=== PATIENT | female | born 1960 | race Caucasian/White ===

== ENCOUNTER 2022-03-27 14:50 | Outpatient (CLI) | payer OTHER, SELFPAY ==
--- NOTE | ~2022-03-27 | DEXA_ITS ---
Bone Density Report Name: KARL CENTENO Age: 61 Sex: Female Ethnicity: White Date of : 1960 Indication: postmenopausal; screening for osteoporosis; height loss; hysterectomy; Referring Provider: CECI BRUMFIELD Study: Bone densitometry was performed. Exam Date: March 27, 2022 Accession number: [id number] Bone Density: Region BMD T-score Z-score Classification AP Spine(L1-L4) 0.740 -2.8 -1.2 Osteoporosis Femoral Neck (Left) 0.588 -2.4 -1.0 Osteopenia Total Hip (Left) 0.789 -1.3 -0.2 Osteopenia Femoral Neck (Right) 0.605 -2.2 -0.8 Osteopenia Total Hip (Right) 0.796 -1.2 -0.1 Osteopenia Total Hip Mean 0.793 -1.3 -0.2 Osteopenia World Health Organization criteria for BMD impression classify patients as: Normal (T-score at or above -1.0), Osteopenia (T-score between -1.0 and -2.5), or Osteoporosis (T-score at or below -2.5). 10-year Fracture Risk: FRAX not reported because: Some T-score for Spine Total or Hip Total or Femoral Neck at or below -2.5 Clinical Information Provided by Patient: Has used the following medications: Vitamin D Has the following medical conditions: Hysterectomy Patient maximum height was 63.5 Menopause Age: 44 Drinks caffeinated beverages Onset of menses at age 17 Number of children 2 Impression: The patient has osteoporosis, based on the Total Spine T-score. Discussion: INCREASED RISK OF FRACTURE. BONE DENSITY IS UNDESIRABLY LOW AT ONE OR MORE SKELETAL SITES, CONSISTENT WITH POSTMENOPAUSAL OSTEOPOROSIS. This patient's lowest T-score meets the World Health Organization's (WHO) criteria for osteoporosis at one or more sites (T-score -2.5 or below). In untreated patients, the risk of osteoporotic fracture increases approximately two-fold for each 1.0 SD decrease in T-score. Low bone density is not the only risk factor for fracture; also consider factors such as patient's age, frailty or poor health, risk of falling, risk of injury, previous osteoporotic fracture, family history of osteoporosis, cigarette smoking, low body weight, etc. Not everyone with low bone mineral density has osteoporosis; osteomalacia and other metabolic bone disorders should also be considered. Patients who have osteoporosis should be evaluated for specific diseases and conditions (secondary causes) that may cause or contribute to bone loss. The [place] [employer] Endocrinologists (AACE) and National Osteoporosis Foundation (NOF) recommend pharmacologic intervention for all postmenopausal women whose T-score is in this range. The patient should follow a healthful lifestyle (good nutrition with adequate calcium and vitamin D, and appropriate weight-bearing exercise). Follow-Up: Consider a repeat BMD and Vertebral Fracture Assessment (VFA) exam in 2 years or sooner if medically
== END 2022-03-27 14:51 | disposition home or self-care (01) ==
PROVIDERS: PCP Family Medicine; Visit Provider Family Medicine
DX: Z78.0 Asymptomatic menopausal state (principal); M81.0 Age-related osteoporosis without current pathological fracture; M85.852 Other specified disorders of bone density and structure, left thigh; M85.851 Other specified disorders of bone density and structure, right thigh
CPT/HCPCS: 77080

== ENCOUNTER → 2022-04-14 11:08 | Outpatient (CLI) | payer OTHER, SELFPAY ==
--- NOTE | ~2022-04-14 | XR_ITS ---
XR foot LT min 3V 04/14/2022 11:20 Indication: Left foot pain Procedure: 4 views left foot Comparison: No prior studies for comparison. Findings: No acute fracture or traumatic malalignment. Osteopenia. There is a degenerative calcaneal enthesophyte at the plantar surface. Lisfranc joint intact. No focal soft tissue abnormality. No fore ign bodies. Impression: 1: No acute bone or joint abnormality. Reviewed, dictated and finalized at location A. LIFT TRUCK OPERATOR Impression: 1: No acute bone or joint abnormality.
== END ==
PROVIDERS: PCP Family Medicine; Visit Provider Family Medicine
DX: M79.672 Pain in left foot (principal)
CPT/HCPCS: 73630

== ENCOUNTER 2022-08-09 22:42 | Emergency (ER) | payer OTHER, SELFPAY ==
--- NOTE | ~2022-08-09 | XR_ITS ---
Clinical Indication: Hypertension PA and lateral views of the chest: Comparison: None Findings: The lungs are clear, without evidence of focal consolidation or pleural effusion. Cardiome diastinal silhouette is within normal limits. Bones and soft tissues are unremarkable. Impression: Normal chest. Reviewed, dictated and finalized at location . Impression: Normal chest.
[2022-08-09 22:45] VITALS: BP 192/69; PULSE 89; RESP 16; TEMP 37.1; O2SAT 100
--- NOTE | 2022-08-09 22:49 | ECG_ITS ---
Measurements Intervals [place] Rate: 85 P: 27 [place]: 180 QRS: 6 QRSD: 89 T: 27 QT: 387 QTc: 463 Interpretive Statements SINUS RHYTHM LOW QRS VOLTAGE IN PRECORDIAL LEADS BASELINE ARTIFACT- I, II, III, AVF BORDERLINE ECG NO PREVIOUS ECG AVAILABLE FOR COMPARISON Electronically Signed On 08-10-2022 7:10:43 CDT by Holger Aguila D.O.
[2022-08-09 22:56] VITALS: BP 197/86; PULSE 82; PULSE 89; RESP 23; O2SAT 98
--- NOTE | 2022-08-09 23:00 | ED.GENADULT ---
HPI - General Adult General Chief complaint: Arrhythmia/Palpitations Stated complaint: HTN, Palpations Time Seen by Provider: 08/09/22 22:50 History of Present Illness HPI narrative: 61-year-old female presented to the emergency department for evaluation of increased hypertension. Patient reports over the course of last week she has had increased her measurements in the 150 systolic range. Patient states this evening she felt that her face was more flushed and she noticed that her blood pressure was even more elevated in the 190 systolic range. Patient denies any associated chest pain with this. Patient reports that she has been eating a salty chicken soup every day over the course of the last week. Not prescribed any medications for her blood pressure. Related Data Home Medications Medication Instructions Recorded Confirmed lactase 3,000 unit tablet (Lactaid) 3,000 unit PO ONCE 07/01/19 05/30/21 Allergies Allergy/AdvReac Type Severity Reaction Status Date / Time erythromycin base Allergy Severe Nausea and Verified 08/09/22 22:42 Vomiting Review of Systems Review of Systems: All systems reviewed & are unremarkable except as noted in HPI and below PMFSH Past Medical History Medical History Allergic rhinitis GERD (gastroesophageal reflux disease) History of Mohs micrographic surgery for skin cancer 2014 Obesity (BMI 30-39.9) Skin cancer Surgical History Surgical History H/O section 1986, 1989 H/O: hysterectomy 2004 History of cholecystectomy 1987 Family History Family History Mother Hypertension Heart disease Father CLL (chronic lymphocytic leukemia) Sibling Hypertension Hyperlipidemia Diabetes mellitus Social History Social History (Updated 05/30/21 @ 10:30 by Xochitl Davis CMA) Smoking status: Never smoker Second hand tobacco smoke exposure: No Alcohol intake: never Substance use: never Substance use type: does not use Gender identity (if verbalized by the patient): Female Exam Narrative: APPEARANCE: Well appearing, no pain, no distress, well-nourished. HEAD: normocephalic, atraumatic. EYES: PERRLA/EOMI, conjunctivae clear. NOSE: Normal no drainage THROAT: Pharynx clear, no exudate. NECK: Supple. No adenopathy, no masses. RESPIRATORY: Airway patent, respirations nonlabored. Clear to auscultation bilaterally, no rales, rhonchi, wheezing. CARDIOVASCULAR: Regular rate and rhythm without murmurs rubs or gallops. ABDOMINAL: Soft, nontender, nondistended, normal bowel sounds MUSCULOSKELETAL: Moves all extremities. Strength/ROM intact, No edema, No calf tenderness. NEURO: Alert. Cranial nerves II through XII intact. Grossly intact SKIN: Warm, dry. Normal Color Course Course Emergency Course: 59-year-old female with elevated blood pressure. Differential diagnosis does include ACS, electrolyte normality, essential hypertension. Patient's blood pressure was treated with IV hydralazine and patient had a significant treatment in her blood pressure. Patient's blood pressure did continue to improve during her stay. Patient was afebrile with no leukocytosis. Patient's CMP was within normal limits. Patient had negative serial troponins. Patient's mag and TSH were also within normal limits. Patient's x-ray showed no acute cardiopulmonary abnormality. Low concern for ACS. Patient's blood pressure did improve significantly and stayed improved. At time of discharge patient's blood pressure was 124/60. Patient was encouraged to have close follow-up with her primary care physician. Patient was also advised to follow a low-sodium diet. Vital Signs Vital signs: Vital Signs Temperature 98.7 F 08/09/22 22:45 Pulse Rate 89 08/09/22 22:45 Respiratory Rate 16 08/09/22 22:45 Blood Press
[2022-08-09] MEDS: ASPIRIN 81 MG CHEWABLE TABLET 324 MG PO (23:02)
[2022-08-09] MEDS: hydrALAZINE HCL 20 MG/ML VIAL 10 MG IV PUSH (23:03)
[2022-08-09 23:22] LABS: Basophils Absolute Auto 0.1 K/mm3 (0.0-0.1); Basophils Percent Auto 0.7 % (0.2-1.2); Eosinophils Absolute Auto 0.2 K/mm3 (0-0.3); Eosinophils Percent Auto 2.6 % (0-4.4); Hematocrit 40.2 % (37.0-47.0); Hemoglobin 13.3 g/dL (12.0-15.0); Immature Granulocyte Absolute 0.02 K/mm3 (0.00-0.031); Immature Granulocyte Percent A 0.3 % (0-0.5); Lymphocytes Absolute Auto 2.68 K/mm3 (0.9-3.2); Lymphocytes Percent Auto 39.1 % (18.3-44.2); Mean Corpuscular HGB Conc 33.1 g/dl (32-36); Mean Corpuscular Hemoglobin 30.3 pg (26-34); Mean Corpuscular Volume 91.6 fl (80-100); Mean Platelet Volume 9.9 fl (7.4-10.4); Monocytes Absolute Auto 0.5 K/mm3 (0.1-0.6); Monocytes Percent Auto 6.6 % (2.6-8.5); Neutrophils Absolute Auto 3.5 K/mm3 (1.3-6.7); Neutrophils Percent Auto 50.7 % (45.5-73.1); Platelet Count Result 266 k/mm3 (150-375); Red Blood Count 4.39 M/mm3 (4.2-5.4); Red Cell Distribution Width 12.2 % (11.5-14.5); White Blood Count 6.9 K/mm3 (4.5-10.0)
[2022-08-09 23:27] VITALS: PULSE 73; RESP 18; O2SAT 100
[2022-08-09 23:34] VITALS: PULSE 76; RESP 15; O2SAT 99
[2022-08-09 23:41] LABS: Prothrombin Time 12.5 Seconds (11.1-14.7)
[2022-08-09 23:42] LABS: Partial Thromboplastin Time 25.8 SECONDS (22.3-36.8)
[2022-08-09 23:45] VITALS: PULSE 74; RESP 16; O2SAT 99
[2022-08-10] VITALS (20 sets, daily range): BP systolic 119–164; BP diastolic 52–75; PULSE 67–95; RESP 12–25; O2SAT 96–100
[2022-08-10 02:12] LABS: Troponin I < 0.012 ng/mL (0.000-0.034)
[2022-08-10 02:53] LABS: Anion Gap 6 mmol/L (8-16); Blood Urea Nitrogen 12 mg/dL (7-17); Calcium 9.7 mg/dL (8.4-10.2); Carbon Dioxide 28 mmol/L (22-30); Chloride 106 mmol/L (98-107); Estimated CRCL calculation 72 ml/min; Estimated Glomerular Filt Rate > 60; Glucose 110 mg/dL (65-110); Potassium 3.7 mmol/L (3.4-5.0); Sodium 140 mmol/L (137-145)
[2022-08-10 02:54] LABS: Alanine Aminotransferase 31 U/L (6-35); Aspartate Amino Transferase 33 U/L (14-36); Bilirubin,Total 0.5 mg/dL (0.2-1.3)
[2022-08-10 02:55] LABS: Albumin Level 4.5 g/dL (3.5-5.1); Alkaline Phosphatase 63 U/L (38-126); Total Protein 7.1 g/dL (6.3-8.2)
[2022-08-10 02:59] LABS: Lipase 125 U/L (23-300); Magnesium 2.2 mg/dL (1.6-2.3); Troponin I < 0.012 ng/mL (0.000-0.034)
== END 2022-08-10 03:00 | disposition home or self-care (01) ==
PROVIDERS: Emergency Provider Emergency Medicine; PCP Family Medicine
DX: I10 Essential (primary) hypertension (principal); K21.9 Gastro-esophageal reflux disease without esophagitis; E66.9 Obesity, unspecified; Z68.31 Body mass index [BMI] 31.0-31.9, adult; Z85.828 Personal history of other malignant neoplasm of skin; Z90.710 Acquired absence of both cervix and uterus; R94.31 Abnormal electrocardiogram [ECG] [EKG]
CPT/HCPCS: 36415; 71046; 80053; 83690; 83735; 84443; 84484; 85025; 85610; 85730; 93005; 96374; 99284; A9270; J0360

== ENCOUNTER 2023-03-24 02:21 | Emergency (ER) | payer OTHER, SELFPAY ==
[2023-03-24] VITALS (16 sets, daily range): BP systolic 138–172; BP diastolic 72–75; PULSE 51–72; RESP 11–21; TEMP 37.1; O2SAT 96–100
--- NOTE | ~2023-03-24 | XR_ITS ---
EXAMINATION: XR chest 2V DATE: 03/24/2023 04:15 INDICATION: Cough. TECHNIQUE: Frontal and lateral views of the chest were obtained. COMPARISON: Chest 2 views 08/09/2022 FINDINGS: There is no pneumonia, pleural effusion, or pneumothorax. The heart size is normal. Surgica l clips in the right upper quadrant are likely from cholecystectomy. IMPRESSION: 1. No acute cardiopulmonary disease. Reviewed, dictated and finalized at location E. ING SPECIALIST
--- NOTE | 2023-03-24 02:24 | ECG_ITS ---
Measurements Intervals [place] Rate: 81 P: 42 [place]: 199 QRS: 13 QRSD: 94 T: 25 QT: 373 QTc: 435 Interpretive Statements SINUS RHYTHM LOW QRS VOLTAGE IN PRECORDIAL LEADS BORDERLINE ST-T WAVE ABNORMALITY- DIFFUSE LEADS BASELINE WANDER- V4 BORDERLINE ECG COMPARED TO ECG 08/09/2022 22:56:06 NO SIGNIFICANT CHANGES Electronically Signed On 03-24-2023 6:29:37 [employer]REG[employer]ATOR E[employer] by Holger Aguila D.O.
[2023-03-24 03:30] LABS: Basophils Percent Auto 0.1 % (0.2-1.2); Eosinophils Percent Auto 0.2 % (0-4.4); Hematocrit 37.4 % (37.0-47.0); Hemoglobin 12.5 g/dL (12.0-15.0); Immature Granulocyte Absolute 0.12 K/mm3 (0.00-0.031); Immature Granulocyte Percent A 1.4 % (0-0.5); Lymphocytes Absolute Auto 1.19 K/mm3 (0.9-3.2); Lymphocytes Percent Auto 13.6 % (18.3-44.2); Mean Corpuscular HGB Conc 33.4 g/dl (32-36); Mean Corpuscular Hemoglobin 30.2 pg (26-34); Mean Corpuscular Volume 90.3 fl (80-100); Mean Platelet Volume 9.6 fl (7.4-10.4); Monocytes Absolute Auto 0.4 K/mm3 (0.1-0.6); Monocytes Percent Auto 4.9 % (2.6-8.5); Neutrophils Percent Auto 79.8 % (45.5-73.1); Platelet Count Result 310 k/mm3 (150-375); Red Blood Count 4.14 M/mm3 (4.2-5.4); Red Cell Distribution Width 12.3 % (11.5-14.5); White Blood Count 8.8 K/mm3 (4.5-10.0)
[2023-03-24 03:39] LABS: Alanine Aminotransferase 31 U/L (6-35); Albumin Level 4.5 g/dL (3.5-5.1); Alkaline Phosphatase 54 U/L (38-126); Anion Gap 12 mmol/L (8-16); Aspartate Amino Transferase 27 U/L (14-36); Bilirubin,Total 0.6 mg/dL (0.2-1.3); Blood Urea Nitrogen 18 mg/dL (7-17); Calcium 9.8 mg/dL (8.4-10.2); Carbon Dioxide 24 mmol/L (22-30); Chloride 100 mmol/L (98-107); Estimated CRCL calculation 95 ml/min; Estimated Glomerular Filt Rate > 60; Glucose 117 mg/dL (65-110); Lipase 85 U/L (23-300); Potassium 3.7 mmol/L (3.4-5.0); Sodium 136 mmol/L (137-145)
[2023-03-24 03:40] LABS: Prothrombin Time 13.6 Seconds (11.1-14.7)
[2023-03-24 03:41] LABS: Partial Thromboplastin Time 24.8 SECONDS (22.3-36.8)
[2023-03-24] MEDS: ASPIRIN 81 MG CHEWABLE TABLET 324 MG PO (03:46)
[2023-03-24 03:51] LABS: Troponin I < 0.012 ng/mL (0.000-0.034)
[2023-03-24 04:18] LABS: D Dimer < 0.27 ug/mL (<0.48)
--- NOTE | 2023-03-24 04:35 | ED.GENADULT ---
HPI - General Adult General Chief complaint: Arrhythmia/Palpitations Stated complaint: COVID+, racing heart Time Seen by Provider: 03/24/23 03:23 History of Present Illness HPI narrative: Patient 62-year-old female who presents the emergency department with chief complaint of feeling a little short of breath and palpitations. The patient states that she recently was diagnosed with COVID on the and reports that she still been having fevers cough and generalized malaise the patient reports this evening she noticed that she started getting very tachycardic with her heart rate in the 150s and was concerned that she may have had a pulmonary embolism. The patient reports that she feels better now that she is arrived to the emergency department and her heart rate has come down to the 70s. Related Data Home Medications Medication Instructions Recorded Confirmed lactase 3,000 unit tablet (Lactaid) 3,000 unit PO ONCE 07/01/19 01/03/23 famotidine 20 mg tablet 20 mg PO QHS 08/10/22 01/03/23 Allergies Allergy/AdvReac Type Severity Reaction Status Date / Time erythromycin base Allergy Severe Nausea and Verified 01/03/23 10:02 Vomiting montelukast AdvReac Severe Jittery Verified 01/03/23 10:02 Review of Systems Review of Systems: A 10 system review of systems was completed on the patient and is negative except for what is stated in the HPI. Nursing and ancillary documentation was reviewed. [facility] Past Medical History Medical History Allergic rhinitis GERD (gastroesophageal reflux disease) History of Mohs micrographic surgery for skin cancer 2014 Obesity (BMI 30-39.9) Skin cancer Surgical History Surgical History H/O section 1986, 1989 H/O: hysterectomy 2004 History of cholecystectomy 1987 Family History Family History Mother Hypertension Heart disease Father CLL (chronic lymphocytic leukemia) Sibling Hypertension Hyperlipidemia Diabetes mellitus Social History Social History Smoking status: Never smoker Second hand tobacco smoke exposure: No Alcohol intake: never Substance use: never Substance use type: does not use Lack of Transportation: No Lack of Food: Never True Current Housing: I Have Housing Concerned About Future Housing: No Difficulty Paying Gas/Electric Bills: No Difficulty Paying for Meds: No Currently Unemployed: No Education: Bachelor's Degree Difficulty w/ Childcare or Family Care: No Gender identity (if verbalized by the patient): Female Sexual Orientation (if Verbalized by the Patient): Straight or Heterosexual Spiritual care concerns: No Agree to blood products: Yes Exam Narrative: GENERAL: Well-appearing, well-nourished, and in no acute distress. HEAD: Normocephalic, atraumatic. EYES: PERRLA and EOMI. ENT: Nares clear, no rhinorrhea or epistaxis. Mucous membranes moist. NECK: Supple. CHEST: Clear to auscultation. No respiratory distress. HEART: Regular rate and rhythm. No murmur heard. Normal peripheral pulses. ABDOMEN: Soft, nontender, nondistended, normal active bowel sounds. EXTREMITIES: Normal range of motion. No edema. SKIN: Warm, dry, no rash. NEURO: No focal deficits. Alert and oriented x3. PSYCH: Normal mood and affect. Course Vital Signs Vital signs: Vital Signs Temperature 37.1 C 03/24/23 02:28 Pulse Rate 72 03/24/23 02:28 Respiratory Rate 20 03/24/23 02:28 Blood Pressure 172/74 H 03/24/23 02:28 Pulse Oximetry 98 03/24/23 02:28 Oxygen Delivery Room Air 03/24/23 02:28 Temperature 37.1 C 03/24/23 02:28 Pulse Rate 72 03/24/23 02:28 Respiratory Rate 20 03/24/23 02:28 Blood Pressure 172/74 H 03/24/23 02:28 Pulse Oxi
== END 2023-03-24 06:16 | disposition home or self-care (01) ==
PROVIDERS: Emergency Provider Emergency Medicine; PCP Family Medicine
DX: R00.2 Palpitations (principal); K21.9 Gastro-esophageal reflux disease without esophagitis; E66.9 Obesity, unspecified; Z68.30 Body mass index [BMI] 30.0-30.9, adult; Z85.828 Personal history of other malignant neoplasm of skin; Z86.16 Personal history of COVID-19; Z90.710 Acquired absence of both cervix and uterus; Z90.49 Acquired absence of other specified parts of digestive tract; R94.31 Abnormal electrocardiogram [ECG] [EKG]
CPT/HCPCS: 36415; 71046; 80053; 83690; 84484; 85025; 85380; 85610; 85730; 93005; 99284; A9270

== ENCOUNTER 2024-12-14 18:21 | Emergency (ER) | payer OTHER, SELFPAY ==
[2024-12-14] VITALS (7 sets, daily range): BP systolic 166–177; BP diastolic 73–74; PULSE 70; RESP 16; TEMP 36.6–37.3; O2SAT 95–98
--- NOTE | ~2024-12-14 | XR_ITS ---
CHEST RADIOGRAPH, PA AND LATERAL CLINICAL HISTORY: fever . COMPARISON: 03/24/2023 TECHNIQUE: PA and lateral views of the chest. FINDINGS The cardiomediastinal silhouette is unremarkable. The lungs are clear. IMPRESSION: No focal infiltrate or effusion. Reviewed, dictated and finalized at location A.
--- OUTSIDE RECORDS SUMMARY | 2024-12-14 18:24 | XMS_ITS ---
Author Organization [facility] Address [address] [place] [address] Care Team Providers Care Tape Maker Name Role Phone ApolloChapis Cora AlyTanika MERRITT Primary Care Provider Active Problems Problem Noted Date Diagnosed Date Varicose veins of right lower extremity with lashaun n 02/22/2023 Nasal mass 01/07/2023 Abdominal pain 03/20/2021 Overview (03/20/2021): Added automatically from request for surgery [id number] Heartburn 03/20/2021 Overview (03/20/2021): Added automatically from request for surgery [id number] Blood in stool 03/20/2021 Overview (03/20/2021): Added automatically from request for surgery [id number] History of colon polyps 03/20/2021 Overview (03/20/2021): Added automatically from request for surgery [id number] Routine eye exam 01/23/2018 Presbyopia of both eyes 01/23/2018 Multiple benign melanocytic nevi 06/24/2017 Sebaceous gland hyperplasia 06/24/2017 UTI (urinary tract infection) 11/08/2015 History of basal cell carcinoma (BCC) 08/25/2015 Pelvic floor dysfunction 05/26/2015 Sleep disorder 05/26/2015 Stress incontinence in female 05/26/2015 Vaginal atrophy 05/26/2015 Basal cell carcinoma (BCC) of face 05/27/2014 Cervical intraepithelial neoplasia grade 2 07/10 Current Treatment and Therapy Plans No current plan information found. Past Treatment and Therapy Plans No past plan information found. Lifetime Dose Tracking * Chemical Lifetime Dose Automatic Entry Manual Entr y DLP 1,461 mGycm 1,461 mGycm 0 mGycm
--- OUTSIDE RECORDS SUMMARY | 2024-12-14 18:24 | XMS_ITS | Clinical Summary ---
Author Organization [employer] [facility] Address [address] [place] [address] Care Team Providers Care Trials Manager Name Role Phone Unavailable Primary Care Provider Unavailabl e Social History Tobacco Use Types Packs/Day Years Used Date Smoking Tobacco: Never Assessed Comments Unknown Sex and Gender Information Value Date Recorded Sex Assigned at Not on file Legal Sex Female 6:30 PM CDT Gender Identity Not on file Sexual Orientation Not on file Plan of Treatment Health Maintenance Due Date Last Done Comments DTAP/TDAP/TD VACCINES (1 - Tdap) 12/05/1978 BREAST CANCER SCREENING 1999 COLORECTAL SCREENING 12/05/2004 Colorectal Cancer Screening 12/05/2004 FIT-DNA Q 3 years 12/05/2004 FIT/FOBT Q 1 year 12/05/2004 Flex Sig/CT Colonography Q 5 years 12/05/2004 PNEUMOCOCCAL VACCINE 50+ YEARS (1 of 1 - PCV) 12/06/19 10 ZOSTER VACCINE (1 of 2) 12/05/2009 OSTEOPOROSIS SCREENING 12/05/2024 INFLUENZA VACCINE (#1) 2024 RSV VACCINE (60+ or ) (1 - 1-dose 75+ series) 12/05/2034 Insurance
--- OUTSIDE RECORDS SUMMARY | 2024-12-14 18:24 | XMS_ITS | Clinical Summary ---
Author Organization [facility] Address [address] [place] [address] Care Team Providers Care Double Back Operator Name Role Phone Cora Pugh DO Primary Care Provider Allergies Active Allergy Reactions Criticality Noted Date Comments Erythromycin Nausea And Vomiting Low 03/16/2014 Medications Lactobac no.41/Bifidobac t no.7 (PROBIOTIC-10 ORAL)Indication s:supplement takes few times a week Take 1 capsule by mouth 3 (three) times a week Active cetirizine (ZyrTEC) 10 mg tabletIndicatio ns:allergies Take 1 tablet (10 mg total) by mouth nightly Active herbal drugs tablet Take 1 tablet by mouth daily [employer] (90 day supply) takes Daily ; BPC-157 Active acetaminophen (TYLENOL) 325 mg tabletIndicatio ns:Pain Take 2 tablets (650 mg total) by mouth every 6 (six) hours as needed for pain Active fluticasone propionate (FLONASE) 50 mcg/actuation nasal spray Administer 1 spray into each nostril 2 (two) times a day 1 each 4 Active famotidine (PEPCID) 40 mg tabletIndicatio ns:Dyspepsia,He artburn Take 1 tablet (40 mg total) by mouth daily 90 tablet 3 4 Active Active Problems Problem Noted Date Diagnosed Date Varicose veins of right lower extremity with lashaun n 02/22/2023 Nasal mass 01/07/2023 Abdominal pain 03/20/2021 Overview (03/20/2021): Added automatically from request for surgery [id number] Heartburn 03/20/2021 Overview (03/20/2021): Added automatically from request for surgery [id number] Blood in stool 03/20/2021 Overview (03/20/2021): Added automatically from request for surgery [id number] History of colon polyps 03/20/2021 Overview (03/20/2021): Added automatically from request for surgery [id number] Routine eye exam 01/23/2018 Presbyopia of both eyes 01/23/2018 Multiple benign melanocytic nevi 06/24/2017 Sebaceous gland hyperplasia 06/24/2017 UTI (urinary tract infection) 11/08/2015 History of basal cell carcinoma (BCC) 08/25/2015 Pelvic floor dysfunction 05/26/2015 Sleep disorder 05/26/2015 Stress incontinence in female 05/26/2015 Vaginal atrophy 05/26/2015 Basal cell carcinoma (BCC) of face 05/27/2014 Cervical intraepithelial neoplasia grade 2 07/10 Immunizations Immunization Administration Dates Next Due Influenza, Quadrivalent, Spl it, Preservative Free, Intramuscular 02/18/2022 Surgical History Surgery Date Site/Laterality Comments ID DELIVERY ONLY 1986 1989 ID TOTAL ABDOMINAL HYSTERECT W/WO RMVL TUBE OVARY 05/13/2004 - 05/12/2005 CHOLECYSTECTOMY 05/13/1988 - 05/12/1989 MOHS SURGERY basal cell x2 2014 and 2022 HYSTERECTOMY 2005 ESOPHAGOGASTRODUODENOSCOPY 05/13/2020 - 05/12/2021 COLONOSCOPY 05/13/2020 - 05/12/2021 Medical History Medical History Date Comments Personal history of healed traumatic fracture History of fracture of ankle - (Added by TW Conv) Personal history of other diseases of urinary system History of hematuria - (Add ed by TW Conv) GERD (gastroesophageal reflu x disease) 10 years ago; severe GERD since October 2020 Headache PONV (postoperative nausea a nd vomiting) Family History Medical History Relation Name Comments Heart failure Brother 1 Kenneth Briggs (twin) Hypertension Brother 2 Master Briggs Cancer Father Armond Briggs Cataracts Father Armond Briggs Leukemia Father Armond Briggs Family histo ry of chronic lymphoid leukemia - (Added by TW Conv) Skin cancer Father Armond Briggs Family histo ry of skin cancer - (Added by TW Conv) Cataracts Mother Heart disease Mother Family history of cardiac disorder - (Added by TW Conv) Leukemia Mother Family history of chronic lymphoid leukemia - (Added by TW Conv) Skin cancer Mother Family history of skin cancer - (Added by TW Conv) Heart disease Other 1 Heart Disease - (Added by TW Conv) Cancer Other 2 Cancer - (Added by TW Conv) Anesthesia problems Neg Hx Relation Name Status Comments Brother 1 Kenneth Briggs (twin) Brother 2 Master Briggs Father Armond Briggs Mother Other 1 Other 2 Social History Tobacco Use Types Packs/Day Years Used Date Smoking Tobacco: Former Cigarettes 1982 Smokeless Tobacco: Never Tobacco Cessation:Counseling Given: Not Answered Comments:Social History AUDIT-C Answer Date Recorded Q1: How often do you have a drink containing alc ohol? Never 04/19/2021 Average Number of Drinks Not on file 021 Frequency of Binge Drinking Not on file 12/2020 Personal Safety Answer Date Recorded Have you ever been in or are you currently in a harmful physical or emotional relationship or is someone making you feel afraid or unsafe? Denies 01/15/2023 Comments No Sex and Gender Information Value Date Recorded Sex Assigned at Not on file Legal Sex Female 10:09 AM ASSISTANT LIBRARIAN Gender Identity Not on file Sexual Orientation Not on file Obstetrics History Last Filed Vital Signs Vital Sign Reading Time Taken Comments Blood Pressure 136/79 12/18/2023 3:25 PM CDT Pulse 65 12/18/2023 3:25 PM CDT Temperature 36.4 C (97.5 F) 12/18/2023 3:25 PM CDT Respiratory Rate 9 01/15/2023 3:40 PM CDT Oxygen Saturation 96% 02/22/2023 8:57 AM CDT Inhaled Oxygen Concentration - - Weight 84.8 kg (187 lb) 12/18/2023 3:25 PM CDT Height 160 cm (5' 3) 12/18/2023 3:25 PM CDT Body Mass Index 33.13 12/18/2023 3:25 PM CDT Plan of Treatment Health Maintenance Due Date Last Done Comments Depression Screening 1960 Hepatitis C Screening 1960 Osteoporosis Screening-Bone Density Scan 1960 DTaP/Tdap/Td Vaccine (1 - Tdap) 12/05/1970 Hepatitis B Screening 12/05/1977 Pneumococcal vaccine 65+ (1 of 1 - PCV) 12/05/2009 Zoster Vaccine (1 of 2) 12/05/2009 Covid-19 Vaccine (4 - 2023-2 5 season) 2024 02/14/2022, 06/24/2020, 06/03/2020 Fall Risk Assessment 01/16/2024 01/15/2023 Well Visit 65+ 12/05/2024 Influenza Vaccine (#1) 2025 02/18/2022 Breast Cancer Screening-Mammogram 03/26/2025 03/26/2024, 02/26/2023, 10/24/2021, Additional history exists Colon Cancer Screening-Colonoscopy 04/19/2031 04/19/2021, 09/12/2016 Colon Cancer Screening-CT Colonography Discontinued 04/19/2021, 09/12/2016 Colon Cancer Screening-DNA Stool Discontinued 04/19/20, 09/12/2016 Colon Cancer Screening-FIT Discontinued 04/19/2021, Colon Cancer Screening-Sigmoidoscopy Discontinued 04/19/2021, 09/12/2016 Procedures Procedure Name Priority Date/Time Associated Diagnosis Comments SCREENING MAMMOGRAM BILATERAL W ROBERT Schedule Routine, Read Routine (OP Routine) 03/26/2024 11:42 AM ASSISTANT LIBRARIAN Screening mammogram, encounter for COLONOSCOPY 04/19/2021 12:19 PM ASSISTANT LIBRARIAN from Last 3 Months or Most Recently Relevant to Health Maintenance Results * Screening Mammogram Bilateral W Robert (03/26/2024 11:42 AM ASSISTANT LIBRARIAN) Anatomical Region Laterality Modality Breast Bilateral Mammography Narrative 03/27/2024 11:54 AM ASSISTANT LIBRARIAN Mammogram Technique: Bilateral Digital Breast Tomosynthesis, Bilateral C-view 2D Screening mammogram. Views obtained: bilateral craniocaudal and bilateral mediolateral oblique. Computer Aided Detection was performed. Mammogram Findings: The present examination has been compared to prior imaging studies performed at [facility] on 07/27/2020 and 10/24/2021, and at [place], [place] on 02/26/2023. The breasts are almost entirely fatty. There is no suspicious abnormality in either breast. Impression: There is no mammographic evidence of malignancy. Annual screening mammography is recommended. OVERALL FINAL ASSESSMENT: BI-RADS CATEGORY 1: Negative. Procedure Note Pauly Whiteside MD - 03/27/2024 Mammogram Technique: Bilateral Digital Breast Tomosynthesis, Bilateral C-view 2D Screening mammogram. Views obtained: bilateral craniocaudal and bilateral mediolateral oblique. Computer Aided Detection was performed. Mammogram Findings: The present examination has been compared to prior imaging studies performed at [facility] on 07/27/2020 and 10/24/2021, and at [place], [place] on 02/26/2023. The breasts are almost entirely fatty. There is no suspicious abnormality in either breast. Impression: There is no mammographic evidence of malignancy. Annual screening mammography is recommended. OVERALL FINAL ASSESSMENT: BI-RADS CATEGORY 1: Negative. us Self Screening Mammogram IMG MAMMO PROCEDURES Fi nal Result * COLONOSCOPY (04/19/2021 12:19 PM ASSISTANT LIBRARIAN) Anatomical Region Laterality Modality Other Narrative Procedure Note Master Whiteside MD - 04/19/2021 12:19 PM CST ENDOSCOPY LAB Patient Name: Karl Good Procedure Date: 04/19/2021 12:19 PM Date of : 1960 Admit Type: Outpatient Age: 60 Gender: Female Attending MD: Master Whiteside M.D. Room: [facility] ENDOSCOPY ROOM 03 Note Status: Finalized Procedure: Colonoscopy Indications: Rectal bleeding Providers: Master Whiteside M.D. Referring MD: Isabela Howe MD Medicines: Monitored Anesthesia Care Complications: No immediate complications. Estimated Blood Loss: Estimated blood loss was minimal. Procedure: Pre-Anesthesia Assessment: - Prior to the procedure, a History and Physicalwas performed, and patient medications, allergies and sensitivities were reviewed. The patient'stolerance of previous anesthesia was reviewed. - The risks and benefits of the procedure and the sedation options and risks were discussed with the patient. All questions were answered and informed consent was obtained. - Immediately prior to administration ofmedications, the patient was re-assessed for adequacy to receive sedatives. The benefits, risks and alternatives of theprocedure and sedation were discussed and informed consentwas obtained. All questions were answered. Please referto the signed informed consent document in the medical record. The scope was passed under direct vision.The [id number] was introduced through the anusand advanced to the terminal ileum. The colonoscopy was performed without difficulty. The patient tolerated the procedure well. The quality of the bowel preparation was evaluated using the BBPS (BostonBowel Preparation Scale) with scores of: Right Colon = 3, Transverse Colon = 3 and Left Colon = 3 (entiremucosa seen well with no residual staining, smallfragments of stool or opaque liquid). The total BBPS score equals 9. Findings: The terminal ileum contained a single localized non-bleeding erosion. There was patchy erythema in the area, but otherwise normal appearing ileal mucosa. No stigmata of recent bleeding were seen. Biopsies were taken with a cold forceps for histology. The colon (entire examined portion) appeared normal. Biopsies weretaken with a cold forceps for histology. There was a medium-sized lipoma, in the ascending colon. Internal hemorrhoids were found during retroflexion. The hemorrhoids were small and Grade I (internal hemorrhoids that do not prolapse). Impression: - A single erosion in the terminal ileum.Biopsied. - The entire examined colon is normal. Biopsied. - Lipoma in the ascending colon. - Internal hemorrhoids. Recommendation: - Await pathology results. - Repeat colonoscopy in 5 years for surveillance(due to history of polyps) - Contact Information: During normal business hours - [facility] Coordinator: [phone] After hours, evening, nights, weekends and holidays- Please call the hospital x ray operator at and ask for the GI fellow compliance monitor. Attending Participation: I personally performed the entire procedure. Electronically signed by Master Whiteside MD Master Whiteside M.D. 04/19/2021 12:44:58 PM Number of Addenda: 0 Note Initiated On: 04/19/2021 12:19 PM Master Whiteside MD ENDOSCOPY PROCEDURES Final Result from Last 3 Months or Most Recently Relevant to Health Maintenance Insurance [facility] [employer] LIFE Advance Directives For more information, please contact: [phone] * Full Code (Latest Code Status on File) Date Activated Date Inactivated Comments 04/19/2021 10:27 AM 04/19/2021 5:40 PM Care Teams Double Back Operator Relationship Specialty Start Date End Date Apollo-Cora Gonsales DO PCP - General Family Medicine 06/24/23
--- OUTSIDE RECORDS SUMMARY | 2024-12-14 18:24 | XMS_ITS | Encounter Summary ---
Author Organization [facility] Facility Care Team Providers Care Supervisor Bindery Name Role Phone Torrey Vora DO Primary Care Provider [phone] Torrey Vora DO Primary Care Provider + Isabela Howe MD Primary Care Provider [phone] Apollo-Cora Gonsales DO Primary Care Provider Encounter Details Date Type Department Care Team (Latest Contact Info) Description 09/07/2015 Orders Only [facility] CLINCONV ProviderSam MD [address] [place] [address] Social History Tobacco Use Types Packs/Day Years Used Date Smoking Tobacco: Former Comments Unknown Sex and Gender Information Value Date Recorded Sex Assigned at Not on file Legal Sex Female 10:09 AM GAMBLING MONITOR Gender Identity Not on file Sexual Orientation Not on file documented as of this encounter Plan of Treatment Not on file documented as of this encounter Procedures Procedure Name Priority Date/Time Associated Diagnosis Comments SCAN - LABS 09/12/2015 12:00 AM CDT SCAN - LABS 09/08/2015 12:00 AM CDT SCAN - LABS 09/07/2015 12:00 AM CDT SCAN - LABS 09/07/2015 12:00 AM CDT documented in this encounter Results * SCAN - LABS (09/12/2015 12:00 AM CDT) Narrative 09/12/2015 12:00 AM CDT Ordered by an unspecified provider. Historical Provider Final Res ult * SCAN - LABS (09/08/2015 12:00 AM CDT) Narrative 09/08/2015 12:00 AM CDT Ordered by an unspecified provider. Historical Provider Final Res ult * SCAN - LABS (09/07/2015 12:00 AM CDT) Narrative 09/07/2015 12:00 AM CDT Ordered by an unspecified provider. Historical Provider Final Res ult * SCAN - LABS (09/07/2015 12:00 AM CDT) Narrative 09/07/2015 12:00 AM CDT Ordered by an unspecified provider. Historical Provider Final Res ult documented in this encounter Visit Diagnoses Not on filedocumented in this encounter Additional Health Concerns Infection Onset Date Last Indicated Resolved Time COVID: Suspected 05/03/2021 05/03/2021 05/04/2021 6:38 AM GAMBLING MONITOR documented as of this encounter Care Teams Supervisor Bindery Relationship Specialty Start Date End Date Torrey Vora DO [address] [address] PCP - General 08/30/16 03/20/18 Torrey Vora DO [address] [address] PCP - General 03/21/18 05/25/20 Isabela Howe MD [address] [address] PCP - General Family Medicine 05/26/20 06/23/23 Cora Pugh DO [address] [place] [address] [place] [address] PCP - General Family Medicine 06/24/23 documented as of this encounter
--- OUTSIDE RECORDS SUMMARY | 2024-12-14 18:24 | XMS_ITS | Encounter Summary ---
Author Organization [facility] Facility Care Team Providers Care Manager Delivery Name Role Phone Torrey Vora DO Primary Care Provider [phone] Torrey Vora DO Primary Care Provider + Isabela Howe MD Primary Care Provider [phone] Apollo-Cora Gonsales DO Primary Care Provider Encounter Details Date Type Department Care Team (Latest Contact Info) Description 10/03/2016 Orders Only [facility]G CLINCONV ProviderSam MD [address] [place] [address] Social History Tobacco Use Types Packs/Day Years Used Date Smoking Tobacco: Former Comments Unknown Sex and Gender Information Value Date Recorded Sex Assigned at Not on file Legal Sex Female 10:09 AM TOOL DESIGNER Gender Identity Not on file Sexual Orientation Not on file documented as of this encounter Plan of Treatment Not on file documented as of this encounter Procedures Procedure Name Priority Date/Time Associated Diagnosis Comments COLONOSCOPY - SCAN 10/03/2016 12 :00 AM CDT documented in this encounter Results * COLONOSCOPY - SCAN (10/03/2016 12:00 AM CDT) Narrative 10/03/2016 12:00 AM CDT Ordered by an unspecified provider. us Historical Provider Final Res ult documented in this encounter Visit Diagnoses Not on filedocumented in this encounter Additional Health Concerns Infection Onset Date Last Indicated Resolved Time COVID: Suspected 05/03/2021 05/03/2021 05/04/2021 6:38 AM TOOL DESIGNER documented as of this encounter Care Teams Manager Delivery Relationship Specialty Start Date End Date Torrey Vora DO [address] [facility] [place] [address] [place] [address] PCP - General 08/30/16 03/20/18 Torrey Vora DO [address] [place] [address] [place] [address] PCP - General 03/21/18 05/25/20 Isabela Howe MD [address] [facility] [facility] [address] [place] [address] [place] [address] PCP - General Family Medicine 05/26/20 06/23/23 Cora Pugh DO [address] [facility] [facility] [address] [place] [address] [place] [address] PCP - General Family Medicine 06/24/23 documented as of this encounter
--- OUTSIDE RECORDS SUMMARY | 2024-12-14 18:24 | XMS_ITS | Referral Summary ---
Author Organization [facility] Address [address] [place] [address] Care Team Providers Care Secondary School Registrar Name Role Phone Cora Pugh DO Primary [...] (03/20/2021): Added automatically from request for surgery [id number] Heartburn 03/20/2021 Overview (03/20/2021): Added automatically from request for surgery [id number] Blood in stool 03/20/2021 Overview (03/20/2021): Added automatically from request for surgery [id number] History of colon polyps 03/20/2021 Overview (03/20/2021): Added automatically from request for surgery [id number] Routine eye exam 01/23/2018 Presbyopia of both [...] Quadrivalent, Spl it, Preservative Free, Intramuscular 02/18/2022 Social History Tobacco Use Types Packs/Day Years Used Date Smoking Tobacco: Former Cigarettes 1 - 1982 Smokeless Tobacco: Never Tobacco Cessation:Counseling Given: [...] on file Legal Sex Female 10:09 AM ACURA SALES CONSULTANT Gender Identity Not on file Sexual Orientation Not on file Last Filed Vital Signs Vital Sign Reading [...] 12/18/2023 3:25 PM CDT Plan of Treatment Not on file Procedures Procedure Name Priority Date/Time Associated Diagnosis Comments SCREENING MAMMOGRAM BILATERAL W OLIVIA Schedule Routine, Read Routine (OP Routine) 03/26/2024 11:42 AM ACURA SALES CONSULTANT Screening mammogram, encounter for COLONOSCOPY 04/19/2021 12:19 PM ACURA SALES CONSULTANT from Last 3 Months or Most Recently Relevant to Health Maintenance Results * Screening Mammogram Bilateral W Olivia (03/26/2024 11:42 AM ACURA SALES CONSULTANT) Anatomical Region Laterality Modality Breast Bilateral Mammography Narrative 03/27/2024 11:54 AM ACURA SALES CONSULTANT Mammogram Technique: Bilateral Digital Breast Tomosynthesis, Bilateral C-view 2D Screening mammogram. Views obtained: bilateral craniocaudal and bilateral mediolateral oblique. Computer Aided Detection was performed. Mammogram Findings: The present examination has been compared to prior imaging studies performed at [facility] on 07/27/2020 and 10/24/2021, and at [facility], [place], [place] on 02/26/2023. The breasts are almost [...] compared to prior imaging studies performed at [facility] on 07/27/2020 and 10/24/2021, and at [facility], [place], [place] on 02/26/2023. The breasts are almost entirely fatty. There is no suspicious abnormality in either breast. Impression: There is no mammographic evidence of malignancy. Annual screening mammography is recommended. OVERALL FINAL ASSESSMENT: BI-RADS CATEGORY 1: Negative. us Self Screening Mammogram IMG MAMMO PROCEDURES Fi nal Result * COLONOSCOPY (04/19/2021 12:19 PM ACURA SALES CONSULTANT) Anatomical Region Laterality Modality Other Narrative Procedure Note Master Whiteside MD - 04/19/2021 12:19 PM CST ENDOSCOPY LAB Patient Name: Araceli Good Procedure Date: 04/19/2021 12:19 PM Date of : 1960 Admit Type: Outpatient Age: 60 Gender: Female Attending MD: Master Whiteside M.D. Room: [facility] ENDOSCOPY ROOM 03 Note Status: Finalized Procedure: [...] The scope was passed under direct vision.The [id number] was introduced through the anusand advanced to [...] During normal business hours - Please call theNurse Coordinator: [phone] After hours, evening, nights, weekends and holidays- Please call the hospital waffle machine operator at and ask for the GI fellow manufacturing production technician. Attending Participation: I personally performed the entire procedure. Electronically signed by Master Whiteside MD Master Whiteside M.D. 04/19/2021 12:44:58 PM Number of Addenda: 0 Note Initiated On: 04/19/2021 12:19 PM Master Whiteside MD ENDOSCOPY PROCEDURES Final Result from Last 3 Months or Most Recently Relevant to Health Maintenance Insurance [facility] [employer] [facility] [employer] [facility] [employer] Advance Directives For more information, please contact: [phone] * Full Code (Latest Code Status on File) Date Activated Date Inactivated Comments 04/19/2021 10:27 AM 04/19/2021 5:40 PM Care Teams Secondary School Registrar Relationship Specialty Start Date End Date Cora Pugh DO PCP - General Family Medicine 06/24/23
--- OUTSIDE RECORDS SUMMARY | 2024-12-14 18:24 | XMS_ITS | Encounter Summary ---
Author Organization [facility] Facility Care Team Providers Care Secy Name Role Phone Torrey Vora DO Primary Care Provider [phone] Torrey Vora DO Primary Care Provider + Isabela Howe MD Primary Care Provider [phone] Apollo-Cora Gonsales DO Primary Care Provider Encounter Details Date Type Department Care Team (Latest Contact Info) Description 09/12/2016 Orders Only [facility]G CLINCONV ProviderSam MD [address] [place] [address] Social History Tobacco Use Types Packs/Day Years Used Date Smoking Tobacco: Former Comments Unknown Sex and Gender Information Value Date Recorded Sex Assigned at Not on file Legal Sex Female 10:09 AM BOIL OFF MACHINE OPERATOR CLOTH Gender Identity Not on file Sexual Orientation Not on file documented as of this encounter Plan of Treatment Not on file documented as of this encounter Procedures Procedure Name Priority Date/Time Associated Diagnosis Comments SCAN - PATHOLOGY 09/13/2016 12:0 0 AM CDT documented in this encounter Results * SCAN - PATHOLOGY (09/13/2016 12:00 AM CDT) Narrative 09/13/2016 12:00 AM CDT Ordered by an unspecified provider. Historical Provider Final Res ult documented in this encounter Visit Diagnoses Not on filedocumented in this encounter Additional Health Concerns Infection Onset Date Last Indicated Resolved Time COVID: Suspected 05/03/2021 05/03/2021 05/04/2021 6:38 AM BOIL OFF MACHINE OPERATOR CLOTH documented as of this encounter Care Teams Secy Relationship Specialty Start Date End Date Torrey Vora DO [address] [place] [address] [place] [address] PCP - General 08/30/16 03/20/18 Torrey Vora DO [address] [place] [address] [place] [address] PCP - General 03/21/18 05/25/20 Isabela Howe MD [address] [place] [address] PCP - General Family Medicine 05/26/20 06/23/23 Cora Pugh DO [address] [place] [address] [place] [address] PCP - General Family Medicine 06/24/23 documented as of this encounter
--- NOTE | 2024-12-14 23:09 | ED.FEVER ---
HPI - Fever General Chief Complaint: Fever <Faby Mason PA-C - Last Filed: 12/16/24 04:12> Stated Complaint: day 8 of fevers, chills, body aches hx long covid <Faby Mason PA-C - Last Filed: 12/16/24 04:12> Time Seen by Provider: 12/14/24 22:36 <Faby Mason PA-C - Last Filed: 12/16/24 04:12> History of Present Illness HPI Narrative: 64-year-old female with history of GERD presents to the emergency department for 9 days of body aches, malaise, fatigue, fever. Patient states her symptoms are worse in the mornings and at night. She states she has been taking Tylenol for her symptoms with improvement until tonight which she took 1000 mg of Tylenol at 4:00 p.m. and states her fever was not responding, she then repeated a 1000 mg of Tylenol at 5:00 p.m. and again stated her fever was not responding so she took 500 to 1000 mg again at 6:00 p.m. and came to the emergency department. Patient states the reason she continues to take Tylenol was because her fever was not responding. She was under the impression she could take 4000 mg within a 24 hour and reportedly did not realize she needed to space out the doses. She endorses a slight nonproductive cough and right ear pain. She denies chest pain, shortness of breath, abdominal pain, vomiting or diarrhea, dysuria or hematuria, recent insect or tick bites, rashes. She does note that she was recently around family members last week who have since tested positive for COVID. Patient to go to urgent care last week and tested negative for COVID and flu. <Faby Mason PA-C - Last Filed: 12/16/24 04:12> Related Data Home Medications: Home Medications ?Medication ?Instructions ?Recorded ?Confirmed ?Last Taken ?Type lactase 3,000 unit tablet (Lactaid) 3,000 unit PO ONCE 07/01/19 04/23/23 Unknown History famotidine 20 mg tablet 20 mg PO QHS 08/10/22 04/23/23 Unknown History <CYNDI Borges Last Filed: 12/16/24 04:12> Allergies/Adverse Reactions: Allergies Allergy/AdvReac Type Severity Reaction Status Date / Time erythromycin base Allergy Severe Nausea and Verified 12/14/24 19:39 Vomiting montelukast AdvReac Severe Jittery Verified 12/14/24 19:39 <Faby Mason PA-C - Last Filed: 12/16/24 04:12> Review of Systems Review of Systems: All systems reviewed & are unremarkable except as noted in HPI and below <Faby Mason PA-C - Last Filed: 12/16/24 04:12> [facility] Past Medical History Medical History: Medical History Obesity (BMI 30-39.9) Skin cancer Allergic rhinitis GERD (gastroesophageal reflux disease) History of Mohs micrographic surgery for skin cancer 2014 <Faby Mason PA-C - Last Filed: 12/16/24 04:12> Surgical History Surgical History: Surgical History H/O section 1986, 1989 H/O: hysterectomy 2005 History of cholecystectomy 1987 <Faby Mason PA-C - Last Filed: 12/16/24 04:12> Family History Family History: Family History Mother Hypertension Heart disease Father CLL (chronic lymphocytic leukemia) Sibling Hypertension Hyperlipidemia Diabetes mellitus <Faby Mason PA-C - Last Filed: 12/16/24 04:12> Social History Social History: Social History Smoking status: Never smoker Second hand tobacco smoke exposure: No Alcohol intake: never Substance use: never Substance use type: does not use Lack of Transportation: No Lack of Food: Never True Current Housing: I Have Housing Concerned About Future Housing: No Difficulty Paying Gas/Electric Bills: No Difficulty Paying for Meds: No Currently Unemployed: No Education: Bachelor's Degree Difficulty w/ Childcare or Family Care: No Gender identity (if verbalized by the patient): Female Sexual Orientation (if Verbalized by the Patient): Straight or Heterosexual Spiritual care concerns: No Agree to blood products: Yes <Faby Mason PA-C - Last Filed: 12/16/24 04:12> Exam Narrative: GENERAL: Well-appearing, well-nourished, and in no acute distress. HEAD: Normocephalic, atraumatic. EYES: PERRLA and EOMI. ENT: Nares clear, no rhinorrhea or epistaxis. Mucous membranes moist. Bilateral TMs are perez nonbulging with normal canals. Posterior pharynx erythema or edema, no tonsillar hypertrophy or exudates NECK: Supple. No nuchal rigidity CHEST: Clear to auscultation. No respiratory distress. HEART: Regular rate and rhythm. No murmur heard. Normal peripheral pulses. ABDOMEN: Soft, nontender, nondistended, normal active bowel sounds. EXTREMITIES: Normal range of motion. No edema. SKIN: Warm, dry, no rash. NEURO: No focal deficits. Alert and oriented x3 <Faby Mason PA-C - Last Filed: 12/16/24 04:12> Course POCKET CUTTER/PA Physician Supervision PA discussed this patient with me. Noted that patient has been having subjective fevers based on their thermometer although has not been febrile on our repeated assessments. Also noted that she has mild leukopenia and with evidence of smudge cells peripheral smear. While this may represent CLL, it is also a nonspecific finding that may represent a viral process or other more benign etiologies. Given this and that she is otherwise nontoxic appearing and hemodynamically stable, reasonable to discharge but with appropriate follow-up. I was available in this way for consultation while patient was in the emergency department but did not personally examine them. <Ayanna Donovan MD - Last Filed: 12/15/24 18:32> Vital Signs Vital signs: Vital Signs Temperature 99.1 F 12/14/24 19:33 Pulse Rate 70 12/14/24 19:33 Respiratory Rate 16 12/14/24 19:33 Blood Pressure 177/73 H 12/14/24 19:33 Pulse Oximetry 97 12/14/24 19:33 Oxygen Delivery Room Air 12/14/24 19:33 Temperature 98.6 F 12/15/24 02:29 Pulse Rate 79 12/15/24 00:45 Respiratory Rate 20 12/15/24 00:45 Blood Pressure 177/80 H 12/15/24 00:01 Pulse Oximetry 98 12/15/24 03:00 Oxygen Delivery Room Air 12/14/24 19:33 <Faby Mason PA-C - Last Filed: 12/16/24 04:12> Vital Signs Temperature 99.1 F 12/14/24 19:33 Pulse Rate 70 12/14/24 19:33 Respiratory Rate 16 12/14/24 19:33 Blood Pressure 177/73 H 12/14/24 19:33 Pulse Oximetry 97 12/14/24 19:33 Oxygen Delivery Room Air 12/14/24 19:33 Temperature 98.6 F 12/15/24 02:29 Pulse Rate 79 12/15/24 00:45 Respiratory Rate 20 12/15/24 00:45 Blood Pressure 177/80 H 12/15/24 00:01 Pulse Oximetry 98 12/15/24 03:00 Oxygen Delivery Room Air 12/14/24 19:33 <Ayanna Donovan MD - Last Filed: 12/15/24 18:32> MDM - Fever MDM Narrative Medical decision making narrative: 64-year-old female presents emergency department for 9 days of body aches, malaise, generalized weakness, fatigue, fevers. See HPI for further history. Triage vitals with elevated blood pressure 177/73, otherwise unremarkable. Patient is afebrile and nontoxic appearing, resting comfortably in exam bed. Of note, patient admits to taking 9671-6654 mg of Tylenol between 4-6 p.m. this evening. Pt reports unintentional overdose. She admits she did not realize she needed to space out her dosing and was under the impression she could take 4000mg within 24 hour period. Her Tylenol level is less than 10. We did consult poison Control who has no further recommendations given patient is at the 4 hour window and Tylenol level is low. Patient's lab work with leukopenia of 3.8 and mild thrombocytopenia with platelets of 134. Hemoglobin is normal at 12.5. Smudge cells are seen on differential. Chemistries with AST of 93 and ALT of 95, normal alk-phos and bilirubin. Patient has no right upper quadrant or epigastric abdominal pain. Lipase is normal. Urinalysis with trace leuk esterase, no white blood cells or bacteria, no hematuria. Salicylate and ETOH levels are unremarkable. Viral swabs are negative. Chest x-ray shows no focal infiltrate or effusion. Patient updated on results. Blood cultures are also obtained and pending. At this point uncertain of patient's source of reported fever. Patient did have her thermometer in the emergency department checked her temperature which registered 101.3. We immediately checked her temperature with our temporal thermometer and our oral thermometer which registered 99 and 97.9 respectively. Advised patient to follow-up closely with her PCP and discussed strict ED return precautions. Also discussed safe Tylenol dosing. Patient is agreeable to plan verbalized understanding. Discharged in stable condition <Faby Mason PA-C - Last Filed: 12/16/24 04:12> Lab Data Result diagrams: 12/14/24 01:08 12/14/24 23:34 <Faby Mason PA-C - Last Filed: 12/16/24 04:12> Labs: Lab Results 12/14/24 12/14/24 12/14/24 Range/Units 01:08 23:12 23:34 WBC 3.8 L (4.5-10.0) K/mm3 RBC 4.10 L (4.2-5.4) M/mm3 Hgb 12.5 (12.0-15.0) g/dL Hct 36.9 L (37.0-47.0) % MCV 90.0 (80-100) fl MCH 30.5 (26-34) pg MCHC 33.9 (32-36) g/dl RDW 12.5 (11.5-14.5) % Plt Count 134 L D (150-375) k/mm3 MPV 9.7 (7.4-10.4) fl Immature Gran % (Auto) 0.5 (0-0.5) % Neut % (Auto) 45.3 L (45.5-73.1) % Lymph % (Auto) 43.8 (18.3-44.2) % Morehouse % (Auto) 7.3 (2.6-8.5) % Eos % (Auto) 2.1 (0-4.4) % Baso % (Auto) 1.0 (0.2-1.2) % Lymph # (Auto) 1.67 (0.9-3.2) K/mm3 Morehouse # (Auto) 0.3 (0.1-0.6) K/mm3 Eos # (Auto) 0.1 (0-0.3) K/mm3 Baso # (Auto) 0.0 (0.0-0.1) K/mm3 Abs Immat Gran (auto) 0.02 (0.00-0.031) K/mm3 Absolute Neuts (auto) 1.7 (1.3-6.7) K/mm3 Absolute Nucleated RBC 0.000 (0.0-0.012) K/mm3 Band Neutrophils % Not Reportable Nucleated RBC % 0.0 (0.0-0.2) % Smudge Cells Present Platelet Estimate Slightly decreased (Adequate) Large Platelets Present Anisocytosis 1+ Schistocytes None seen PT 12.6 (11.1-14.7) Seconds INR 0.9 APTT 20.0 L (22.3-36.8) Seconds Sodium 133 L (137-145) mmol/L Potassium 3.9 (3.4-5.0) mmol/L Chloride 103 (98-107) mmol/L Carbon Dioxide 25 (22-30) mmol/L Anion Gap 5 (4-12) mmol/L BUN 8 D (7-17) mg/dL Creatinine 0.68 L (0.7-1.0) mg/dL Estim Creat Clear Calc 74 ml/min Estimated GFR > 60 (59 - ) Glucose 135 H (65-110) mg/dL Calcium 9.6 (8.4-10.2) mg/dL Total Bilirubin 0.6 (0.2-1.3) mg/dL AST 93 H (14-36) U/L ALT 95 H (6-35) U/L Alkaline Phosphatase 104 (38-126) U/L Total Protein 7.5 (6.3-8.2) g/dL Albumin 4.3 (3.5-5.1) g/dL Lipase 57 (23-300) U/L Urine Color Yellow (Yellow) Urine Appearance Clear (Clear) Urine pH 5.5 (5.0-9.0) Ur Specific Willis 1.011 (1.001-1.035) Urine Protein Negative (Negative) mg/dL Urine Glucose (UA) Negative (Negative) mg/dL Urine Ketones Negative (Negative) mg/dL Ur Blood (Man) Negative (Negative) Urine Nitrate Negative (Negative) Urine Bilirubin Negative (Negative) Urine Urobilinogen 0.2 (<2.0) mg/dL Leukocyte Esterase Rfl Trace H (Negative) ROBERT/UL Urine RBC 0-2 (0-2) /hpf Urine WBC 0-5 (0-3) /hpf Ur Squamous Epith Cells None seen (Few) /hpf Urine Bacteria None seen /hpf Urine Casts 0-2 Salicylates < 1.0 L (2-20) mg/dL Urine Opiates Screen Negative (Negative) Urine Methadone Screen Negative (Negative) Acetaminophen < 10 L (10-30) ug/mL Ur Barbiturates Screen Negative (Negative) Ur Phencyclidine Scrn Negative (Negative) Ur Amphetamine Screen Negative (Negative) U Benzodiazepines Scrn Negative (Negative) Urine Cocaine Screen Negative (Negative) U Cannabinoids Screen Negative (Negative) Ethyl Alcohol < 10 (<10) mg/dL Influenza A (RT-PCR) (Negative) Influenza B (RT-PCR) (Negative) RSV (RT-PCR) (Negative) SARS-CoV-2 RNA (RT-PCR) (Negative) 12/14/24 Range/Units 23:44 WBC (4.5-10.0) K/mm3 RBC (4.2-5.4) M/mm3 Hgb (12.0-15.0) g/dL Hct (37.0-47.0) % MCV (80-100) fl MCH (26-34) pg MCHC (32-36) g/dl RDW (11.5-14.5) % Plt Count (150-375) k/mm3 MPV (7.4-10.4) fl Immature Gran % (Auto) (0-0.5) % Neut % (Auto) (45.5-73.1) % Lymph % (Auto) (18.3-44.2) % Morehouse % (Auto) (2.6-8.5) % Eos % (Auto) (0-4.4) % Baso % (Auto) (0.2-1.2) % Lymph # (Auto) (0.9-3.2) K/mm3 Morehouse # (Auto) (0.1-0.6) K/mm3 Eos # (Auto) (0-0.3) K/mm3 Baso # (Auto) (0.0-0.1) K/mm3 Abs Immat Gran (auto) (0.00-0.031) K/mm3 Absolute Neuts (auto) (1.3-6.7) K/mm3 Absolute Nucleated RBC (0.0-0.012) K/mm3 Band Neutrophils % Nucleated RBC % (0.0-0.2) % Smudge Cells Platelet Estimate (Adequate) Large Platelets Anisocytosis Schistocytes PT (11.1-14.7) Seconds INR APTT (22.3-36.8) Seconds Sodium (137-145) mmol/L Potassium (3.4-5.0) mmol/L Chloride (98-107) mmol/L Carbon Dioxide (22-30) mmol/L Anion Gap (4-12) mmol/L BUN (7-17) mg/dL Creatinine (0.7-1.0) mg/dL Estim Creat Clear Calc ml/min Estimated GFR (59 - ) Glucose (65-110) mg/dL Calcium (8.4-10.2) mg/dL Total Bilirubin (0.2-1.3) mg/dL AST (14-36) U/L ALT (6-35) U/L Alkaline Phosphatase (38-126) U/L Total Protein (6.3-8.2) g/dL Albumin (3.5-5.1) g/dL Lipase (23-300) U/L Urine Color (Yellow) Urine Appearance (Clear) Urine pH (5.0-9.0) Ur Specific Willis (1.001-1.035) Urine Protein (Negative) mg/dL Urine Glucose (UA) (Negative) mg/dL Urine Ketones (Negative) mg/dL Ur Blood (Man) (Negative) Urine Nitrate (Negative) Urine Bilirubin (Negative) Urine Urobilinogen (<2.0) mg/dL Leukocyte Esterase Rfl (Negative) ROBERT/UL Urine RBC (0-2) /hpf Urine WBC (0-3) /hpf Ur Squamous Epith Cells (Few) /hpf Urine Bacteria /hpf Urine Casts Salicylates (2-20) mg/dL Urine Opiates Screen (Negative) Urine Methadone Screen (Negative) Acetaminophen (10-30) ug/mL Ur Barbiturates Screen (Negative) Ur Phencyclidine Scrn (Negative) Ur Amphetamine Screen (Negative) U Benzodiazepines Scrn (Negative) Urine Cocaine Screen (Negative) U Cannabinoids Screen (Negative) Ethyl Alcohol (<10) mg/dL Influenza A (RT-PCR) Negative (Negative) Influenza B (RT-PCR) Negative (Negative) RSV (RT-PCR) Negative (Negative) SARS-CoV-2 RNA (RT-PCR) Negative (Negative) <Faby Mason PA-C - Last Filed: 12/16/24 04:12> Lab Results 12/14/24 12/14/24 12/14/24 Range/Units 01:08 23:12 23:34 WBC 3.8 L (4.5-10.0) K/mm3 RBC 4.10 L (4.2-5.4) M/mm3 Hgb 12.5 (12.0-15.0) g/dL Hct 36.9 L (37.0-47.0) % MCV 90.0 (80-100) fl MCH 30.5 (26-34) pg MCHC 33.9 (32-36) g/dl RDW 12.5 (11.5-14.5) % Plt Count 134 L D (150-375) k/mm3 MPV 9.7 (7.4-10.4) fl Immature Gran % (Auto) 0.5 (0-0.5) % Neut % (Auto) 45.3 L (45.5-73.1) % Lymph % (Auto) 43.8 (18.3-44.2) % Morehouse % (Auto) 7.3 (2.6-8.5) % Eos % (Auto) 2.1 (0-4.4) % Baso % (Auto) 1.0 (0.2-1.2) % Lymph # (Auto) 1.67 (0.9-3.2) K/mm3 Morehouse # (Auto) 0.3 (0.1-0.6) K/mm3 Eos # (Auto) 0.1 (0-0.3) K/mm3 Baso # (Auto) 0.0 (0.0-0.1) K/mm3 Abs Immat Gran (auto) 0.02 (0.00-0.031) K/mm3 Absolute Neuts (auto) 1.7 (1.3-6.7) K/mm3 Absolute Nucleated RBC 0.000 (0.0-0.012) K/mm3 Band Neutrophils % Not Reportable Nucleated RBC % 0.0 (0.0-0.2) % Smudge Cells Present Platelet Estimate Slightly decreased (Adequate) Large Platelets Present Anisocytosis 1+ Schistocytes None seen PT 12.6 (11.1-14.7) Seconds INR 0.9 APTT 20.0 L (22.3-36.8) Seconds Sodium 133 L (137-145) mmol/L Potassium 3.9 (3.4-5.0) mmol/L Chloride 103 (98-107) mmol/L Carbon Dioxide 25 (22-30) mmol/L Anion Gap 5 (4-12) mmol/L BUN 8 D (7-17) mg/dL Creatinine 0.68 L (0.7-1.0) mg/dL Estim Creat Clear Calc 74 ml/min Estimated GFR > 60 (59 - ) Glucose 135 H (65-110) mg/dL Calcium 9.6 (8.4-10.2) mg/dL Total Bilirubin 0.6 (0.2-1.3) mg/dL AST 93 H (14-36) U/L ALT 95 H (6-35) U/L Alkaline Phosphatase 104 (38-126) U/L Total Protein 7.5 (6.3-8.2) g/dL Albumin 4.3 (3.5-5.1) g/dL Lipase 57 (23-300) U/L Urine Color Yellow (Yellow) Urine Appearance Clear (Clear) Urine pH 5.5 (5.0-9.0) Ur Specific Willis 1.011 (1.001-1.035) Urine Protein Negative (Negative) mg/dL Urine Glucose (UA) Negative (Negative) mg/dL Urine Ketones Negative (Negative) mg/dL Ur Blood (Man) Negative (Negative) Urine Nitrate Negative (Negative) Urine Bilirubin Negative (Negative) Urine Urobilinogen 0.2 (<2.0) mg/dL Leukocyte Esterase Rfl Trace H (Negative) ROBERT/UL Urine RBC 0-2 (0-2) /hpf Urine WBC 0-5 (0-3) /hpf Ur Squamous Epith Cells None seen (Few) /hpf Urine Bacteria None seen /hpf Urine Casts 0-2 Salicylates < 1.0 L (2-20) mg/dL Urine Opiates Screen Negative (Negative) Urine Methadone Screen Negative (Negative) Acetaminophen < 10 L (10-30) ug/mL Ur Barbiturates Screen Negative (Negative) Ur Phencyclidine Scrn Negative (Negative) Ur Amphetamine Screen Negative (Negative) U Benzodiazepines Scrn Negative (Negative) Urine Cocaine Screen Negative (Negative) U Cannabinoids Screen Negative (Negative) Ethyl Alcohol < 10 (<10) mg/dL Influenza A (RT-PCR) (Negative) Influenza B (RT-PCR) (Negative) RSV (RT-PCR) (Negative) SARS-CoV-2 RNA (RT-PCR) (Negative) 12/14/24 Range/Units 23:44 WBC (4.5-10.0) K/mm3 RBC (4.2-5.4) M/mm3 Hgb (12.0-15.0) g/dL Hct (37.0-47.0) % MCV (80-100) fl MCH (26-34) pg MCHC (32-36) g/dl RDW (11.5-14.5) % Plt Count (150-375) k/mm3 MPV (7.4-10.4) fl Immature Gran % (Auto) (0-0.5) % Neut % (Auto) (45.5-73.1) % Lymph % (Auto) (18.3-44.2) % Morehouse % (Auto) (2.6-8.5) % Eos % (Auto) (0-4.4) % Baso % (Auto) (0.2-1.2) % Lymph # (Auto) (0.9-3.2) K/mm3 Morehouse # (Auto) (0.1-0.6) K/mm3 Eos # (Auto) (0-0.3) K/mm3 Baso # (Auto) (0.0-0.1) K/mm3 Abs Immat Gran (auto) (0.00-0.031) K/mm3 Absolute Neuts (auto) (1.3-6.7) K/mm3 Absolute Nucleated RBC (0.0-0.012) K/mm3 Band Neutrophils % Nucleated RBC % (0.0-0.2) % Smudge Cells Platelet Estimate (Adequate) Large Platelets Anisocytosis Schistocytes PT (11.1-14.7) Seconds INR APTT (22.3-36.8) Seconds Sodium (137-145) mmol/L Potassium (3.4-5.0) mmol/L Chloride (98-107) mmol/L Carbon Dioxide (22-30) mmol/L Anion Gap (4-12) mmol/L BUN (7-17) mg/dL Creatinine (0.7-1.0) mg/dL Estim Creat Clear Calc ml/min Estimated GFR (59 - ) Glucose (65-110) mg/dL Calcium (8.4-10.2) mg/dL Total Bilirubin (0.2-1.3) mg/dL AST (14-36) U/L ALT (6-35) U/L Alkaline Phosphatase (38-126) U/L Total Protein (6.3-8.2) g/dL Albumin (3.5-5.1) g/dL Lipase (23-300) U/L Urine Color (Yellow) Urine Appearance (Clear) Urine pH (5.0-9.0) Ur Specific Willis (1.001-1.035) Urine Protein (Negative) mg/dL Urine Glucose (UA) (Negative) mg/dL Urine Ketones (Negative) mg/dL Ur Blood (Man) (Negative) Urine Nitrate (Negative) Urine Bilirubin (Negative) Urine Urobilinogen (<2.0) mg/dL Leukocyte Esterase Rfl (Negative) ROBERT/UL Urine RBC (0-2) /hpf Urine WBC (0-3) /hpf Ur Squamous Epith Cells (Few) /hpf Urine Bacteria /hpf Urine Casts Salicylates (2-20) mg/dL Urine Opiates Screen (Negative) Urine Methadone Screen (Negative) Acetaminophen (10-30) ug/mL Ur Barbiturates Screen (Negative) Ur Phencyclidine Scrn (Negative) Ur Amphetamine Screen (Negative) U Benzodiazepines Scrn (Negative) Urine Cocaine Screen (Negative) U Cannabinoids Screen (Negative) Ethyl Alcohol (<10) mg/dL Influenza A (RT-PCR) Negative (Negative) Influenza B (RT-PCR) Negative (Negative) RSV (RT-PCR) Negative (Negative) SARS-CoV-2 RNA (RT-PCR) Negative (Negative) <Ayanna Donovan MD - Last Filed: 12/15/24 18:32> Discharge Plan Discharge Clinical Impression: Malaise, Elevated LFTs, Unintentional Tylenol overdose <Faby Mason PA-C - Last Filed: 12/16/24 04:12> Patient Disposition: Home <Faby Mason PA-C - Last Filed: 12/16/24 04:12> Condition: Stable <Faby Mason PA-C - Last Filed: 12/16/24 04:12> Instructions: Antibiotic Form, Fatigue (ED) <Faby Mason PA-C - Last Filed: 12/16/24 04:12> Additional Instructions: Please rest, drink plenty of fluids, take 1000 mg of Tylenol as needed every 6 hours. Do not exceed 4000 mg in a 24 hour period. Follow-up closely with her primary care provider within the following week. Your found have a low white blood cell count and mildly low platelet count. This may be due to a virus or other source. Please make sure to have your labs redrawn by her primary care provider. Additionally her liver enzymes were found to be elevated. Please have these rechecked by her primary care provider. Return to the emergency department if you develop a fever of 100.4 or greater that is not responsive to Tylenol or ibuprofen, you are unable to tolerate food or fluids, you develop abdominal pain or other concerning symptoms. <Faby Mason PA-C - Last Filed: 12/16/24 04:12> Patient Language: Bahraini <Faby Mason PA-C - Last Filed: 12/16/24 04:12> Prescriptions: New ondansetron 4 mg tablet,disintegrating 4 mg PO Q8H Qty: 14 0RF ibuprofen 800 mg tablet 800 mg PO TID PRN (Reason: pain) Qty: 20 0RF No Action lactase [Lactaid] 3,000 unit tablet 3,000 unit PO ONCE Rx Instructions: administer with meals and/or snacks famotidine 20 mg tablet 20 mg PO QHS cetirizine 10 mg tablet See Rx Instructions .ROUTE .COMPLEX Qty: 90 3RF Dose Instruction: TAKE 1 TABLET BY MOUTH EVERY DAY Rx Instructions: TAKE 1 TABLET BY MOUTH EVERY DAY fluticasone propionate 50 mcg/actuation spray,suspension 1 spray NASAL DAILY Qty: 54.6 6RF Rx Instructions: administer into each nostril <Faby Mason PA-C - Last Filed: 12/16/24 04:12> Follow-up/Referrals: PHYSICIAN,SUPPLY CLERK [Primary Care Provider] - <Faby Mason PA-C - Last Filed: 12/16/24 04:12>
[2024-12-14] MEDS: ONDANSETRON INJ 4 MG/2 ML VIAL IV PUSH (23:35)
[2024-12-14] MEDS: SODIUM CHLORIDE 0.9% IV 1,000 ML 999 ML IV CONT (23:36)
--- OUTSIDE RECORDS SUMMARY | 2024-12-14 23:59 | XMS_ITS | Encounter Summary ---
Author Organization [facility] Care Team Providers Care Parts Clerk Name Role Phone Torrey Vora DO Primary Care Provider [phone] Torrey Vora DO Primary Care Provider + Isabela Howe MD Primary Care Provider [phone] Apollo-Cora Gonsales DO Primary Care Provider Encounter Details Date Type Department Care Team (Latest Contact Info) Description 10/03/2016 Orders Only [facility] ProviderSam MD [address] [place] [id number] Social History Tobacco Use Types Packs/Day Years Used Date Smoking Tobacco: Former Comments Unknown Sex and Gender Information Value Date Recorded Sex Assigned at Not on file Legal Sex Female 10:09 AM [employer] Gender Identity Not on file Sexual Orientation [...] COVID: Suspected 05/03/2021 05/03/2021 05/04/2021 6:38 AM [employer] documented as of this encounter Care Teams Parts Clerk Relationship Specialty Start Date End Date Torrey Vora DO [address] [place] [address] [place] [id number] PCP - General 08/30/16 03/20/18 Torrey Vora DO [address] [place] [address] [place] [id number] PCP - General 03/21/18 05/25/20 Isabela Howe MD [address] [place] [address] [place] [id number] PCP - General Family Medicine 05/26/20 06/23/23 Cora Pugh DO [address] [place] [address] [place] [id number] PCP - General Family Medicine 06/24/23 documented as of this encounter
--- OUTSIDE RECORDS SUMMARY | 2024-12-14 23:59 | XMS_ITS | Referral Summary ---
Author Organization [facility] Address [address] [place] [address] Care Team Providers Care Nuclear Physician Name Role Phone Cora Pugh DO Primary [...] (03/20/2021): Added automatically from request for surgery [id number] Heartburn 03/20/2021 Overview (03/20/2021): Added automatically from request for surgery [id number] Blood in stool 03/20/2021 Overview (03/20/2021): Added automatically from request for surgery [id number] History of colon polyps 03/20/2021 Overview (03/20/2021): Added automatically from request for surgery [id number] Routine eye exam 01/23/2018 Presbyopia of both [...] on file Legal Sex Female 10:09 AM SLOT FLOOR PERSON Gender Identity Not on file Sexual Orientation [...] Read Routine (OP Routine) 03/26/2024 11:42 AM SLOT FLOOR PERSON Screening mammogram, encounter for COLONOSCOPY 04/19/2021 12:19 PM SLOT FLOOR PERSON from Last 3 Months or Most Recently Relevant to Health Maintenance Results * Screening Mammogram Bilateral W Olivia (03/26/2024 11:42 AM SLOT FLOOR PERSON) Anatomical Region Laterality Modality Breast Bilateral Mammography Narrative 03/27/2024 11:54 AM SLOT FLOOR PERSON Mammogram Technique: Bilateral Digital Breast Tomosynthesis, Bilateral C-view 2D Screening mammogram. Views obtained: bilateral craniocaudal and bilateral mediolateral oblique. Computer Aided Detection was performed. Mammogram Findings: The present examination has been compared to prior imaging studies performed at [facility] on 07/27/2020 and 10/24/2021, and at [facility], [place], [place] on 02/26/2023. The breasts are almost [...] compared to prior imaging studies performed at [facility] on 07/27/2020 and 10/24/2021, and at [facility], [place], [place] on 02/26/2023. The breasts are almost entirely fatty. There is no suspicious abnormality in either breast. Impression: There is no mammographic evidence of malignancy. Annual screening mammography is recommended. OVERALL FINAL ASSESSMENT: BI-RADS CATEGORY 1: Negative. us Self Screening Mammogram IMG MAMMO PROCEDURES Fi nal Result * COLONOSCOPY (04/19/2021 12:19 PM SLOT FLOOR PERSON) Anatomical Region Laterality Modality Other Narrative Procedure Note Master Whiteside MD - 04/19/2021 12:19 PM CST ENDOSCOPY LAB Patient Name: Araceli Good Procedure Date: 04/19/2021 12:19 PM Date of : 1960 Admit Type: Outpatient Age: 60 Gender: Female Attending MD: Master Whiteside M.D. Room: [facility] ENDOSCOPY ROOM 03 Note Status: Finalized [...] The scope was passed under direct vision.The [id number] was introduced through the anusand advanced to [...] business hours - Please call theNurse Coordinator: [phone] After hours, evening, nights, weekends and holidays- Please call the hospital quality control operator at and ask for the GI fellow account liaison. Attending Participation: I personally performed the entire procedure. Electronically signed by Master Whiteside MD Master Whiteside M.D. 04/19/2021 12:44:58 PM Number of Addenda: 0 Note Initiated On: 04/19/2021 12:19 PM Master Whiteside MD ENDOSCOPY PROCEDURES Final Result from Last 3 Months or Most Recently Relevant to Health Maintenance Insurance [facility] [employer] [facility] [employer] [facility] [employer] Advance Directives For more information, please contact: [phone] * Full Code (Latest Code Status on File) Date Activated Date Inactivated Comments 04/19/2021 10:27 AM 04/19/2021 5:40 PM Care Teams Nuclear Physician Relationship Specialty Start Date End Date Cora Pugh DO PCP - General Family Medicine 06/24/23
--- OUTSIDE RECORDS SUMMARY | 2024-12-14 23:59 | XMS_ITS | Encounter Summary ---
Author Organization [facility] Care Team Providers Care Extension Specialist Name Role Phone Torrey Vora DO Primary Care Provider [phone] Torrey Vora DO Primary Care Provider + Isabela Howe MD Primary Care Provider [phone] Apollo-Cora Gonsales DO Primary Care Provider Encounter Details Date Type Department Care Team (Latest Contact Info) Description 09/07/2015 Orders Only [facility] CLINCONV ProviderSam MD [address] [place] [id number] Social History Tobacco Use Types Packs/Day Years Used Date Smoking Tobacco: Former Comments Unknown Sex and Gender Information Value Date Recorded Sex Assigned at Not on file Legal Sex Female 10:09 AM FLOOR COVERING PRINTER Gender Identity Not on file Sexual Orientation [...] COVID: Suspected 05/03/2021 05/03/2021 05/04/2021 6:38 AM FLOOR COVERING PRINTER documented as of this encounter Care Teams Extension Specialist Relationship Specialty Start Date End Date Torrey Vora DO [address] [place] [address] PCP - General 08/30/16 03/20/18 Torrey Vora DO [address] [address] PCP - General 03/21/18 05/25/20 Isabela Howe MD [address] [place] [address] PCP - General Family Medicine 05/26/20 06/23/23 Cora Pugh DO [address] [place] [address] [place] [address] PCP - General Family Medicine 06/24/23 documented as of this encounter
--- OUTSIDE RECORDS SUMMARY | 2024-12-14 23:59 | XMS_ITS | Clinical Summary ---
Author Organization [employer] [facility] Address [address] [place] [address] Care Team Providers Care Animation Camera Operator Name Role Phone Unavailable Primary Care Provider [...]
--- OUTSIDE RECORDS SUMMARY | 2024-12-14 23:59 | XMS_ITS ---
Author Organization [facility] Address [address] [place] [address] Care Team Providers Care Spaghetti Machine Operator Name Role Phone ApolloChapis Cora AlyTanika MERRITT Primary Care Provider Active Problems Problem Noted Date Diagnosed Date Varicose veins of right lower extremity with lashaun n 02/22/2023 Nasal mass 01/07/2023 Abdominal pain 03/20/2021 Overview (03/20/2021): Added automatically from request for surgery [id number] Heartburn 03/20/2021 Overview (03/20/2021): Added automatically from request for surgery [id number] Blood in stool 03/20/2021 Overview (03/20/2021): Added automatically from request for surgery [id number] History of colon polyps 03/20/2021 Overview (03/20/2021): Added automatically from request for surgery [id number] Routine eye exam 01/23/2018 Presbyopia of both [...]
--- OUTSIDE RECORDS SUMMARY | 2024-12-14 23:59 | XMS_ITS | Encounter Summary ---
Author Organization [facility] Care Team Providers Care Hand Cloth Examiner Name Role Phone Torrey Vora DO Primary Care Provider [phone] Torrey Vora DO Primary Care Provider + Isabela Howe MD Primary Care Provider [phone] Apollo-Cora Gonsales DO Primary Care Provider Encounter Details Date Type Department Care Team (Latest Contact Info) Description 09/12/2016 Orders Only MMG CLINCONV ProviderSam MD [address] [place] [address] Social History Tobacco Use Types Packs/Day Years Used Date Smoking Tobacco: Former Comments Unknown Sex and Gender Information Value Date Recorded Sex Assigned at Not on file Legal Sex Female 10:09 AM COPY MESSENGER Gender Identity Not on file Sexual Orientation [...] COVID: Suspected 05/03/2021 05/03/2021 05/04/2021 6:38 AM COPY MESSENGER documented as of this encounter Care Teams Hand Cloth Examiner Relationship Specialty Start Date End Date Torrey Vora DO [address] [place] [address] [place] [address] PCP - General 08/30/16 03/20/18 Torrey Vora DO [address] [place] [address] [place] [address] PCP - General 03/21/18 05/25/20 sIabela Howe MD [address] [place] [address] PCP - General Family Medicine 05/26/20 06/23/23 Cora Pugh DO [address] [place] [address] [place] [address] PCP - General Family Medicine 06/24/23 documented as of this encounter
--- OUTSIDE RECORDS SUMMARY | 2024-12-14 23:59 | XMS_ITS | Clinical Summary ---
Author Organization [facility] Address [address] [place] [address] Care Team Providers Care Platen Builder Up Name Role Phone Cora Pugh DO Primary [...] (03/20/2021): Added automatically from request for surgery [id number] Heartburn 03/20/2021 Overview (03/20/2021): Added automatically from request for surgery [id number] Blood in stool 03/20/2021 Overview (03/20/2021): Added automatically from request for surgery [id number] History of colon polyps 03/20/2021 Overview (03/20/2021): Added automatically from request for surgery [id number] Routine eye exam 01/23/2018 Presbyopia of both [...] 02/18/2022 Surgical History Surgery Date Site/Laterality Comments GA DELIVERY ONLY 1986 1989 GA TOTAL ABDOMINAL HYSTERECT W/WO RMVL TUBE OVARY [...] on file Legal Sex Female 10:09 AM DEVELOPER SUPPORT ENGINEER Gender Identity Not on file Sexual Orientation [...] Read Routine (OP Routine) 03/26/2024 11:42 AM DEVELOPER SUPPORT ENGINEER Screening mammogram, encounter for COLONOSCOPY 04/19/2021 12:19 PM DEVELOPER SUPPORT ENGINEER from Last 3 Months or Most Recently Relevant to Health Maintenance Results * Screening Mammogram Bilateral W Robert (03/26/2024 11:42 AM DEVELOPER SUPPORT ENGINEER) Anatomical Region Laterality Modality Breast Bilateral Mammography Narrative 03/27/2024 11:54 AM DEVELOPER SUPPORT ENGINEER Mammogram Technique: Bilateral Digital Breast Tomosynthesis, Bilateral C-view 2D Screening mammogram. Views obtained: bilateral craniocaudal and bilateral mediolateral oblique. Computer Aided Detection was performed. Mammogram Findings: The present examination has been compared to prior imaging studies performed at [facility] on 07/27/2020 and 10/24/2021, and at [place], [place] on 02/26/2023. The breasts are almost [...] compared to prior imaging studies performed at [facility] on 07/27/2020 and 10/24/2021, and at [place], [place] on 02/26/2023. The breasts are almost entirely fatty. There is no suspicious abnormality in either breast. Impression: There is no mammographic evidence of malignancy. Annual screening mammography is recommended. OVERALL FINAL ASSESSMENT: BI-RADS CATEGORY 1: Negative. us Self Screening Mammogram IMG MAMMO PROCEDURES Fi nal Result * COLONOSCOPY (04/19/2021 12:19 PM DEVELOPER SUPPORT ENGINEER) Anatomical Region Laterality Modality Other Narrative Procedure Note Master Whiteside MD - 04/19/2021 12:19 PM CST ENDOSCOPY LAB Patient Name: Karl Good Procedure Date: 04/19/2021 12:19 PM Date of : 1960 Admit Type: Outpatient Age: 60 Gender: Female Attending MD: Master Whiteside M.D. Room: [facility] ENDOSCOPY ROOM 03 Note Status: Finalized [...] The scope was passed under direct vision.The [id number] was introduced through the anusand advanced to [...] During normal business hours - [facility]: [phone] After hours, evening, nights, weekends and holidays- Please call the hospital bench lathe operator at and ask for the GI fellow manager electronic. Attending Participation: I personally performed the entire procedure. Electronically signed by Master Whiteside MD Master Whiteside M.D. 04/19/2021 12:44:58 PM Number of Addenda: 0 Note Initiated On: 04/19/2021 12:19 PM Master Whiteside MD ENDOSCOPY PROCEDURES Final Result from Last 3 Months or Most Recently Relevant to Health Maintenance Insurance [facility] [employer] Advance Directives For more information, please contact: [phone] * Full Code (Latest Code Status on File) Date Activated Date Inactivated Comments 04/19/2021 10:27 AM 04/19/2021 5:40 PM Care Teams Platen Builder Up Relationship Specialty Start Date End Date Apollo-Cora Gonsales DO PCP - General Family Medicine 06/24/23
[2024-12-15] VITALS (8 sets, daily range): BP systolic 177; BP diastolic 80; PULSE 79; RESP 20; TEMP 37–37.2; O2SAT 97–100
[2024-12-15] LABS: Glucose Urine UA Negative (Negative); Leukocyte Esterase Ur Trace LEU/UL (Negative); Nitrate Urine Negative (Negative); Non Pathogenic Casts 0-2; Specific Grav Ur 1.011 (1.001-1.035)
[2024-12-15 00:01] LABS: Add Urine Microscopic? YES; Appearance Urine Clear (Clear)
[2024-12-15 00:06] LABS: Cannabinoid Screen Urine Negative (Negative)
[2024-12-15 00:14] LABS: Alanine Aminotransferase 95 U/L (6-35); Albumin Level 4.3 g/dL (3.5-5.1); Alkaline Phosphatase 104 U/L (38-126); Anion Gap 5 mmol/L (4-12); Aspartate Amino Transferase 93 U/L (14-36); Bilirubin,Total 0.6 mg/dL (0.2-1.3); Blood Urea Nitrogen 8 mg/dL (7-17); Calcium 9.6 mg/dL (8.4-10.2); Carbon Dioxide 25 mmol/L (22-30); Chloride 103 mmol/L (98-107); Estimated CRCL calculation 74 ml/min; Estimated Glomerular Filt Rate > 60; Glucose 135 mg/dL (65-110); Potassium 3.9 mmol/L (3.4-5.0); Sodium 133 mmol/L (137-145); Total Protein 7.5 g/dL (6.3-8.2)
[2024-12-15 00:15] LABS: INR 0.9; Prothrombin Time 12.6 Seconds (11.1-14.7)
[2024-12-15 00:18] LABS: Acetaminophen < 10 ug/mL (10-30); Salicylate < 1.0 mg/dL (2-20)
[2024-12-15 00:30] LABS: Partial Thromboplastin Time 20.0 Seconds (22.3-36.8)
[2024-12-15 00:44] LABS: Influenza A QL RT-PCR Negative (Negative); Influenza B QL RT-PCR Negative (Negative); RSV RNA, RT-PCR Negative (Negative); SARS-CoV-2 RNA PCR Negative (Negative)
[2024-12-15 01:38] LABS: Hematocrit 36.9 % (37.0-47.0); Hemoglobin 12.5 g/dL (12.0-15.0); Immature Granulocyte Percent A 0.5 % (0-0.5); Lymphocytes Absolute Auto 1.67 K/mm3 (0.9-3.2); Mean Corpuscular HGB Conc 33.9 g/dl (32-36); Mean Corpuscular Hemoglobin 30.5 pg (26-34); Mean Corpuscular Volume 90.0 fl (80-100); Nucleated Red Blood Cells Absolute Auto 0.000 K/mm3 (0.0-0.012); Nucleated Red Blood Cells Perc 0.0 % (0.0-0.2); Platelet Count Result 134 k/mm3 (150-375); Red Blood Count 4.10 M/mm3 (4.2-5.4); White Blood Count 3.8 K/mm3 (4.5-10.0)
[2024-12-15 02:14] LABS: Anisocytosis 1+; Smudge Cells PRESENT
[2024-12-15 02:15] LABS: Schistocytes None Seen
[2024-12-15] MEDS: ONDANSETRON INJ 4 MG/2 ML VIAL IV PUSH (03:01)
[2024-12-15] MEDS: IBUPROFEN 600 MG TABLET PO (03:01)
[2024-12-15 03:15] LABS: Lipase 57 U/L (23-300)
== END 2024-12-15 03:41 | disposition home or self-care (01) ==
PROVIDERS: Student in an Organized Health Care Education/Training Program; Emergency Provider Physician Assistant
DX: T39.1X1A Poisoning by 4-Aminophenol derivatives, accidental (unintentional), initial encounter (principal); R53.81 Other malaise; R94.5 Abnormal results of liver function studies; Z20.822 Contact with and (suspected) exposure to COVID-19; D69.6 Thrombocytopenia, unspecified; K21.9 Gastro-esophageal reflux disease without esophagitis; E66.9 Obesity, unspecified; Z68.33 Body mass index [BMI] 33.0-33.9, adult; Z85.828 Personal history of other malignant neoplasm of skin; Z90.710 Acquired absence of both cervix and uterus; Z90.49 Acquired absence of other specified parts of digestive tract
CPT/HCPCS: 36415; 71046; 80053; 80143; 80179; 80307; 81001; 82077; 83690; 85025; 85610; 85730; 87040; 87637; 96361; 96374; 96376; 99284; A9270; J2405; J7030